=== PATIENT | male | born 1995 | race African-American/Black ===

== ENCOUNTER 2019-05-12 18:34 | Emergency (ER) | payer OTHER ==
[~2019-05-12] VITALS: Ht 180.3 cm; Wt 122.4 kg
--- NOTE | 2019-05-12 19:34 | REP ---
Clinical: Trauma . Technique: Internal rotation, external rotation, and Y view right shoulder . Findings: No acute fracture or dislocation. The acromioclavicular and glenohumeral joints are intact. No periarticular calcifications or degenerative changes are appreciated. Sub acromial space is normal. Surrounding soft tissues are unremarkable. Impression: No acute fracture or dislocation is appreciated. Electronically Signed by Brent Barragan MD 05/12/2019 07:26 P
[2019-05-12 20:11] VITALS: BP 132/77
== END 2019-05-12 20:40 | disposition home or self-care (01) ==
LOC: M ED 18:34
DX: S46.001A Unspecified injury of muscle(s) and tendon(s) of the rotator cuff of right shoulder, initial encounter (principal); Y92.147 Courtyard of prison as the place of occurrence of the external cause; Y93.67 Activity, basketball; W51.XXXA Accidental striking against or bumped into by another person, initial encounter

== ENCOUNTER 2020-05-09 06:54 | Observation (INO) | payer OTHER, SELFPAY ==
[~2020-05-09] VITALS: Ht 180.3 cm; Wt 131.8 kg
[2020-05-09] MEDS ORDERED: NS 1,000 ML IV ONE ×2 (07:15→09:00)
[2020-05-09 07:41] LABS: VENOUS PARTIAL PRESSURE CO2 36.6 mmHg (38.0-50.0); VENOUS PARTIAL PRESSURE O2 127.3 mmHg (30.0-50.0); VENOUS PH 7.387 UNITS (7.330-7.430)
[2020-05-09 07:42] LABS: VENOUS BASE EXCESS -2.9 (-2.0-2.0); VENOUS HCO3 21.5 MEQ/L (23.0-27.0); VENOUS O2 SATURATION 98.7 % (60.0-80.0); VENOUS STANDARD HCO3 22.1 MEQ/L; VENOUS TOTAL CO2 22.6 MEQ/L (24.0-28.0)
[2020-05-09 07:45] LABS: BASO % 0.5 % (0.0-1.0); EOS # 0.1 10^3/uL (0.0-0.5); EOS % 1.3 % (0.0-3.0); HEMATOCRIT 45.7 % (42.0-52.0); LYMPH # 1.9 10^3/uL (1.5-5.0); LYMPH % 22.5 % (24.0-44.0); MEAN CORPUSCULAR HEMOGLOBIN 26.6 pg (27.0-33.0); MEAN CORPUSCULAR HGB CONC 32.8 g/dl (32.0-36.5); MEAN CORPUSCULAR VOLUME 81.2 fl (80.0-96.0); MONO # 0.8 10^3/uL (0.0-0.8); MONO % 8.9 % (0.0-5.0); NEUTROPHILS # 5.7 10^3/uL (1.5-8.5); NEUTROPHILS % 66.6 % (36.0-66.0); PLATELET COUNT, AUTOMATED 295 10^3/uL (150-450); RED BLOOD COUNT 5.63 10^6/uL (4.30-6.10); WHITE BLOOD COUNT 8.5 10^3/uL (4.0-10.0)
--- NOTE | 2020-05-09 07:59 | REPVR ---
PROCEDURE INFORMATION: Exam: XR Chest, 1 View Exam date and time: 05/09/2020 7:41 AM Age: 24 years old Clinical indication: Other: Dizziness; Additional info: Drug overdose TECHNIQUE: Imaging protocol: XR of the chest Views: 1 view. COMPARISON: No relevant prior studies available. FINDINGS: Lungs: No acute airspace disease. Pleural space: No pleural effusion. Heart/Mediastinum: No cardiomegaly. Bones/joints: Unremarkable. IMPRESSION: No acute airspace or pleural disease. Electronically signed by: Mario Contreras On 05/09/2020 07:59:32 AM
[2020-05-09 08:20] LABS: OSMOLALITY SERUM 290 MOSM/KG (275-295)
[2020-05-09 08:32] LABS: BLOOD UREA NITROGEN 13 MG/DL (7-18); GLUCOSE, FASTING 99 MG/DL (70-100)
[2020-05-09 08:33] LABS: ACETAMINOPHEN LEVEL < 2.0 UG/ML (10.0-30.0); ALBUMIN 4.2 GM/DL (3.2-5.2); ALT/SGPT 47 U/L (12-78); BILIRUBIN,DIRECT 0.2 MG/DL (0.0-0.2); BILIRUBIN,TOTAL 0.5 MG/DL (0.2-1.0); CALCIUM LEVEL 9.4 MG/DL (8.5-10.1); CARBON DIOXIDE LEVEL 24 MEQ/L (21-32); CHLORIDE LEVEL 107 MEQ/L (98-107); CPK CREATINE PHOSPHOKINASE 2318 U/L (39-308); CREATININE FOR GFR 1.38 MG/DL (0.70-1.30); ETHYL ALCOHOL (ETHANOL) < 0.003 % (0.000-0.010); GLOMERULAR FILTRATION RATE > 60.0 (>60); POTASSIUM SERUM 3.5 MEQ/L (3.5-5.1); SALICYLATE LEVEL 3.3 MG/DL (5.0-30.0); SODIUM LEVEL 140 MEQ/L (136-145)
--- NOTE | 2020-05-09 10:09 | REPVR ---
PROCEDURE INFORMATION: Exam: CT Head Without Contrast Exam date and time: 05/09/2020 9:55 AM Age: 24 years old Clinical indication: Altered mental status/memory loss TECHNIQUE: Imaging protocol: Computed tomography of the head without contrast. Radiation optimization: All CT scans at this facility use at least one of these dose optimization techniques: automated exposure control; mA and/or kV adjustment per patient size (includes targeted exams where dose is matched to clinical indication); or iterative reconstruction. COMPARISON: No relevant prior studies available. FINDINGS: Brain: Symmetric caliber of the cortical sulci. Normal shoemaker-white matter differentiation. No acute cortical infarct, mass effect, or intracranial hemorrhage. Punctate left basal ganglia calcification. Ventricles: Normal configuration of the ventricles. Bones/joints: No acute calvarial pathology. Sinuses: No sinus fluid. Mastoid air cells: No mastoid effusion. Soft tissues: Unremarkable soft tissues. IMPRESSION: No acute intracranial pathology. Electronically signed by: Mario Contreras On 05/09/2020 10:09:11 AM
[2020-05-09 10:33] LABS: MYOGLOBIN 488 NG/ML (16-116)
[2020-05-09 10:56] LABS: AMPHETAMINES LEVEL URINE POSITIVE (NEGATIVE); BARBITURATES URINE NEGATIVE (NEGATIVE); BENZODIAZEPINES URINE NEGATIVE (NEGATIVE); CANNABINOIDS URINE POSITIVE (NEGATIVE); COCAINE METABOLITE URINE POSITIVE (NEGATIVE); METHADONE URINE NEGATIVE (NEGATIVE); OPIATES URINE NEGATIVE (NEGATIVE); PHENCYCLIDINE URINE NEGATIVE (NEGATIVE)
[2020-05-09 11:14] VITALS: BP 155/94
--- NOTE | 2020-05-16 14:34 | ECGEPIP ---
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
--- NOTE | 2020-05-16 14:35 | ECGEPIP ---
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
== END 2020-05-09 11:00 | disposition left against medical advice (07) ==
LOC: M ED 06:54 → M ED INP 06:55
PROVIDERS: ADMIT Internal Medicine; ATTEND Internal Medicine
DX: T43.621A Poisoning by amphetamines, accidental (unintentional), initial encounter (principal); T40.601A Poisoning by unspecified narcotics, accidental (unintentional), initial encounter; T43.201A Poisoning by unspecified antidepressants, accidental (unintentional), initial encounter; M62.82 Rhabdomyolysis; R00.0 Tachycardia, unspecified; R11.0 Nausea; R06.02 Shortness of breath; R42 Dizziness and giddiness
CPT/HCPCS: 36415; 70450; 71045; 80048; 80076; 80307; 82550; 82803; 83874; 83930; 84443; 85025; 93005; 93041; 96360; 96361; 99285; G0480

== ENCOUNTER 2020-09-10 15:19 | Observation (INO) | payer SELFPAY ==
[~2020-09-10] VITALS: Ht 180.3 cm; Wt 139.3 kg
[2020-09-10] MEDS ORDERED: IPRATROPIUM 0.5MG/ALBUTEROL 2.5MG INH SOL UD 3ML (DUONEB) NEB ONE (16:00)
[2020-09-10 16:06] LABS: BASO % 0.8 % (0.0-1.0); EOS # 0.1 10^3/uL (0.0-0.5); EOS % 2.5 % (0.0-3.0); HEMATOCRIT 48.8 % (42.0-52.0); HEMOGLOBIN 14.9 g/dl (13.5-17.5); LYMPH # 2.1 10^3/uL (1.5-5.0); LYMPH % 41.2 % (24.0-44.0); MEAN CORPUSCULAR HGB CONC 30.5 g/dl (32.0-36.5); MEAN CORPUSCULAR VOLUME 85.3 fl (80.0-96.0); MONO # 0.5 10^3/uL (0.0-0.8); MONO % 9.8 % (0.0-5.0); NEUTROPHILS # 2.3 10^3/uL (1.5-8.5); NEUTROPHILS % 45.3 % (36.0-66.0); PLATELET COUNT, AUTOMATED 284 10^3/uL (150-450); RED BLOOD COUNT 5.72 10^6/uL (4.30-6.10); WHITE BLOOD COUNT 5.1 10^3/uL (4.0-10.0)
[2020-09-10] MEDS ORDERED: NALOXONE 2MG/2ML SYRINGE (J2310 PER 1MG) IV STA (16:09)
--- NOTE | 2020-09-10 16:40 | REP ---
INDICATION: SOB. COMPARISON: Comparison study May 09, 2020.. TECHNIQUE: Sitting AP portable chest x-ray. FINDINGS: The lungs are symmetrically aerated and clear. The pleural angles are sharp. Cardiomediastinal silhouette is unremarkable. No bony abnormality is seen. Pulmonary vasculature is not increased. IMPRESSION: No active disease. <Electronically signed by Rex March > 09/10/20 [id number]
[2020-09-10 16:58] LABS: RSV AMPLIFICATION NEGATIVE (NEGATIVE)
[2020-09-10 17:40] LABS: ACETAMINOPHEN LEVEL < 2.0 UG/ML (10.0-30.0); ALBUMIN 3.9 GM/DL (3.2-5.2); ALT/SGPT 51 U/L (12-78); BILIRUBIN,DIRECT 0.2 MG/DL (0.0-0.2); BILIRUBIN,TOTAL 0.5 MG/DL (0.2-1.0); BLOOD UREA NITROGEN 16 MG/DL (7-18); CALCIUM LEVEL 8.8 MG/DL (8.5-10.1); CARBON DIOXIDE LEVEL 23 MEQ/L (21-32); CHLORIDE LEVEL 106 MEQ/L (98-107); CPK CREATINE PHOSPHOKINASE 4062 U/L (39-308); CREATININE FOR GFR 1.26 MG/DL (0.70-1.30); ETHYL ALCOHOL (ETHANOL) 0.003 % (0.000-0.010); GLOMERULAR FILTRATION RATE > 60.0 (>60); GLUCOSE, FASTING 113 MG/DL (70-100); MB/CK RELATIVE INDEX 0.22 (< OR =4); POTASSIUM SERUM 3.7 MEQ/L (3.5-5.1); SALICYLATE LEVEL 3.1 MG/DL (5.0-30.0); SODIUM LEVEL 139 MEQ/L (136-145); TOTAL PROTEIN 8.2 GM/DL (6.4-8.2); TROPONIN I < 0.02 NG/ML (< 0.10)
--- NOTE | 2020-09-10 17:45 | ECGEPIP ---
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
[2020-09-10] MEDS ORDERED: NS 1,000 ML IV SCH (18:04)
[2020-09-10 20:01] LABS: CK-MB VALUE MASS 8.6 NG/ML (<3.6); CPK CREATINE PHOSPHOKINASE 3737 U/L (39-308); MB/CK RELATIVE INDEX 0.23 (< OR =4); TROPONIN I < 0.02 NG/ML (< 0.10)
--- NOTE | 2020-09-10 20:53 | HPEPDOC ---
[facility] Medical History & Physical Date of Admission Sep 10, 2020 Date of Service: Sep 10, 2020 History and Physical CHIEF COMPLAINT: AMS 2/2 heroin OD HISTORY OF PRESENT ILLNESS: 25 yo M, found in field by EMS obtunded, required 8 mg of narcan to be reversed, followed by an additional 2 mg IV in the ER. Was hypoxic, but improved with 2L NC. At the time of exam, patient is AAO x 3, denies chest pain, palpitations, SOB, cough, n/v/d or fevers/chills. Of note, EKG in ED concerning with septal FL, however trop < 0.03 x 2 without progression on EKG. EKG was reviewed by Dr. Almazan who concurred with abnormal EKG. Recommended trending of trop, no acute intervention at this time given lack of cardiac enzyme elevation or chest pain. PAST MEDICAL HISTORY: Oebsity BMI 41.9 PAST SURGICAL HISTORY: none per patient SOCIAL HISTORY: Heroine use (states first time) Daily etoh use Smoker 2 cigars per day FAMILY HISTORY: Denies family hx ALLERGIES: Please see below. REVIEW OF SYSTEMS: CONSTITUTIONAL: . HEENT: . CARDIOVASCULAR: . RESPIRATORY: . GASTROINTESTINAL: . GENITOURINARY: . SKIN: . MUSCULOSKELETAL: . NEUROLOGICAL: . PSYCHIATRIC: . ENDOCRINE: . HEMATOLOGIC/LYMPHATIC: . HOME MEDICATIONS: Please see below. PHYSICAL EXAMINATION: VITAL SIGNS: Temperature , pulse , respiratory rate , blood pressure , pulse oximetry % on room air. GENERAL APPEARANCE: . HEENT: . CARDIOVASCULAR: . LUNGS: . ABDOMEN: . MUSCULOSKELETAL: . EXTREMITIES: . NEUROLOGICAL: . PSYCHIATRIC: . LABORATORY DATA: See below. IMAGING: CXR (09/10/20): The lungs are symmetrically aerated and clear. The pleural angles are sharp. Cardiomediastinal silhouette is unremarkable. No bony abnormality is seen. Pulmonary vasculature is not increased. IMPRESSION: No active disease. MICROBIOLOGY: Please see below. ASSESSMENT: 25 yo M with a hx of polysubstance abuse, obesity, brought to ER by EMS after heroin OD. Patient was resusciaated with a total of 10 mg narcan. Abnormal EKG concerning of ACS, depiste negative trop x 2 and absence of CP. D/w cardiology, continue to monitor and trend trops, no recs for acute intervention at this time. . PLAN: #Heroin OD - admit to PCU - NC O2 to maintain pO2 > 92% #ETOH use disorder - [facility] protocol - thimaine, folate, MVTs - withdrawal precautions #Abnormal EKG - t wave inversions II, III, avf, st elevation in V3,V4, reviewed with Dr. Almazan - trop neg x 2 - continue to cycle cardiac enzymes - tele monitoring - check 2D echo #Rhabdomyolysis - CK 4000 - c/w IVF NS 150 cc/hr - repeat CPK in am. #Obesity, BMI 41.9 - complicating care DVT ppx: lovenox daily. Vital Signs Vital Signs Date Time Temp Pulse Resp B/P (MAP) Pulse Ox O2 Delivery O2 Flow Rate FiO2 09/10/20 18:30 77 18 151/85 (107) 96 Nasal Cannula 4.0 09/10/20 15:28 97.0 Laboratory Data Labs 24H Laboratory Tests 2 09/10/20 15:42: Immature Granulocyte % (Auto) 0.4, Neutrophils (%) (Auto) 45.3, Lymphocytes (%) (Auto) 41.2, Monocytes (%) (Auto) 9.8H, Eosinophils (%) (Auto) 2.5, Basophils (%) (Auto) 0.8, Neutrophils # (Auto) 2.3, Lymphocytes # (Auto) 2.1, Monocytes # (Auto) 0.5, Eosinophils # (Auto) 0.1, Basophils # (Auto) 0.0, Nucleated Red Blood Cells % (auto) 0.0 09/10/20 16:11: Coronavirus (COVID-19)(PCR) NEGATIVE, Influenza Type A (RT-PCR) NEGATIVE, Influenza Type B (RT-PCR) NEGATIVE, Respiratory Syncytial Virus (PCR) NEGATIVE 09/10/20 16:44: Anion Gap 10, Glomerular Filtration Rate > 60.0, Calcium Level 8.8, Total Bilirubin 0.5, Direct Bilirubin 0.2, Aspartate Amino Transf (AST/SGOT) 82H, Alanine Aminotransferase (ALT/SGPT) 51, Alkaline Phosphatase 89, Total Creatine Kinase 4062H, Creatine Kinase MB 9.0H, Creatine Kinase MB Relative Index 0.22, Troponin I < 0.02, Total Protein 8.2, Albumin 3.9, Albumin/Globulin Ratio 0.9, Thyroid Stimulating Hormone (TSH) 1.450, Salicylates Level 3.1L, Acetaminophen Level < 2.0L, Ethyl Alcohol Level 0.003 09/10/20 18:25: Total Creatine Kinase 3737H, Creatine Kinase MB 8.6H, Creatine Kinase MB Relative Index 0.23, Troponin I < 0.02 CBC/BMP Laboratory Tests 09/10/20 15:42 09/10/20 16:44 Home Medications No Active Prescriptions or Reported Meds Allergies Coded Allergies: No Known Allergies (Unverified , 05/12/19) SLY JARQUIN MD Sep 10, 2020 20:53
[2020-09-10] MEDS ORDERED: LORazepam 2 MG TAB PO PRN (21:15)
[2020-09-10 22:38] VITALS: BP 140/88
[2020-09-10 23:00] VITALS: BP 154/68
--- NOTE | 2020-09-11 07:30 | ECGEPIP ---
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
[2020-09-11] MEDS ORDERED: FOLIC ACID 1 MG TAB PO SCH (09:00)
[2020-09-11] MEDS ORDERED: MULTIVITAMINS/MINERALS THERAP 1 TAB PO SCH (09:00)
[2020-09-11] MEDS ORDERED: THIAMINE 100 MG TAB PO SCH (09:00)
[2020-09-11] MEDS ORDERED: ENOXAPARIN 40MG/0.4ML SYRINGE (J1650 PER 10MG) SC SCH (09:00)
== END 2020-09-11 | disposition left against medical advice (07) ==
LOC: M ED 15:19 → EDBD 15:19 → M ED INP 15:20 → M PCU 22:28
PROVIDERS: ADMIT Family Medicine; ATTEND Family Medicine
DX: T40.1X1A Poisoning by heroin, accidental (unintentional), initial encounter (principal); R94.31 Abnormal electrocardiogram [ECG] [EKG]; F10.10 Alcohol abuse, uncomplicated; M62.82 Rhabdomyolysis; F17.290 Nicotine dependence, other tobacco product, uncomplicated; E66.9 Obesity, unspecified
CPT/HCPCS: 36415; 71045; 80048; 80076; 82550; 82553; 84443; 84484; 85025; 87631; 93005; 93041; 94640; 94760; 96361; 96374; 99285; G0480; J2310